=== PATIENT | male | born 1945 | race Caucasian/White ===

== ENCOUNTER 2022-07-25 06:08 | Observation (INO) ==
--- NOTE | 2022-06-16 09:29 | PAT Medication Instructions ---
Medication Instructions Date of Service June 16, 2022 Home Medications coenzyme Q10 100 mg capsule (Co Q-10) 100 mg PO PM wrgcezpvvti-dkihjjcdi-haj C-Mn 500 mg-400 mg capsule 1 cap PO PM lovastatin 20 mg tablet,extended release 24 hr 20 mg PO PM metformin 500 mg tablet 500 mg PO BID multivitamin 1 tab PO PM valsartan 160 mg-hydrochlorothiazide 12.5 mg tablet 1 tab PO QAM STOP taking 2 weeks before surgery coenzyme Q10 100 mg capsule (Co Q-10) 100 mg PO PM xjskzlblcze-wxopglmwj-qnp C-Mn 500 mg-400 mg capsule 1 cap PO PM DO NOT take the morning of surgery metformin 500 mg tablet 500 mg PO BID valsartan 160 mg-hydrochlorothiazide 12.5 mg tablet 1 tab PO QAM Take evening before surgery lovastatin 20 mg tablet,extended release 24 hr 20 mg PO PM metformin 500 mg tablet 500 mg PO BID multivitamin 1 tab PO PM Other Notes NOTHING TO EAT OR DRINK AFTER MIDNIGHT. If you have any questions please call us at [phone] or [phone] or [phone] or [phone]
--- NOTE | 2022-06-29 11:07 | Anesthesiology Consultation ---
Date of Service June 29, 2022 Assessment & Plan (1) Encounter for pre-operative examination: - COVID screening: Per assessment on 06/29: No known COVID-19 positive contacts or current COVID-19 related symptoms. Travel screen negative. Patient vaccinated. At surgeon discretion if preop Covid testing being done. - Check BSG AM DOS - Outpatient joint assessment: Pt currently scheduled for inpatient pathway. If surgeon requests review for outpatient joint pathway, patient is acceptable candidate for outpatient joint program from anesthesia standpoint pending surgeon's office assessment of pt motivation/support/completion of same day joint program preop requirements. Surgeon's office would be responsible to ensure patient has strong post-op home support. Chart Review Chart Review: Acceptable Risk for Surgery and Patient seen in Pre Admission Testing Teaching & Discussion Pre-Anesthesia Teaching/Discussion Notes: Instructed NPO after midnight before surgery,except medications with 15 cc of water. Medication instructions provided according to the PAT guidelines. History Surgery Operation Date: 07/25/22 08:50 Proposed Procedures p Right Total Knee Arthroplasty - Homer Huerta MD Height/Weight Height: 5 ft 9 in Weight: 98.883 kg Allergies Allergy/AdvReac Type Severity Reaction Status Date / Time No Known Allergies Allergy Verified 06/09/22 09:35 Medications Home Medications Medication Instructions Recorded Confirmed Last Taken coenzyme Q10 100 mg capsule (Co 100 mg PO PM 06/09/22 06/09/22 Unknown Q-10) awmosviuskl-ohgjicphb-gzk C-Mn 500 1 cap PO PM 06/09/22 06/09/22 Unknown mg-400 mg capsule lovastatin 20 mg tablet,extended 20 mg PO PM 06/09/22 06/09/22 Unknown release 24 hr metformin 500 mg tablet 500 mg PO BID 06/09/22 06/09/22 Unknown multivitamin 1 tab PO PM 06/09/22 06/09/22 Unknown valsartan 160 1 tab PO DAILY 06/09/22 06/29/22 Unknown mg-hydrochlorothiazide 12.5 mg tablet Past Medical History Medical History Diabetes mellitus, type 2 NIDDM Hyperlipidemia Hypertension Kidney stones Obesity Right knee DJD Exercise / Class Metabolic Activity II 4-5 Yardwork/Stairs/Walk up hill (one FS (no CP, no SOB)) Past Family History Family History Family/Other No problems noted. Father Diabetes mellitus, type 2 Past Surgical History Surgical History History of carpal tunnel release bilat History of colonoscopy History of kidney surgery right kidney (15+ years ago), non-cancerous History of lithotripsy History of tonsillectomy History of tooth extraction History of urinary tract surgery Hx of elbow surgery right Hx of vasectomy Past Anesthesia History No Hx of Anesthesia Complications and No Family Hx of Anesthesia Complications History of PONV No Hx of PONV and No Hx of Motion Sickness Social History Smoking Status: Former smoker Do You Dip or Chew Tobacco: No Smoking End Date: Quit 30 years ago Hx Alcohol Use: Yes Alcohol type: beer alcohol intake frequency: holidays/special occasions only Hx Substance Use: No substance use type: does not use Review of Systems Patient denies chest pain, shortness of breath, dyspnea on exertion, fever, chills, cough, wheezing, palpitations. Physical Exam Vital Signs VITALS BP 129/74 P 73 TEMP 98.4 SP02 97%RA RESP 18 PHYSICAL Full cervical extension range of motion. Full TMJ range of motion. TMD 3 finger breaths Mallampati Score 3 Dentition: missing sides, + several crowns Lungs: clear throughout to auscultation Cardiac: regular rate and rhythm, no murmurs noted Spine: normal Carotid arteries: negative bruit Extremities: no edema Lab Results Anesthesia Preop Results Results Anesthesia Widget: WBC 5.50 K/ul (4.8-10.8) 06/29/22 Hgb 13.1 g/dl (14.0-18.0) L 06/29/22 Hct 37.9 % (40.1-51.0) L 06/29/22 Plt 169 K/uL (130-400) 06/29/22 Na 137 mmol/L (136-145) 06/29/22 K 4.6 mmol/L (3.5-5.1) 06/29/22 Cl 103 mmol/L (98-107) 06/29/22 CO2 29 mmol/L (21-32) 06/29/22 BUN 19 mg/dl (6-23) 06/29/22 Creat 1.16 mg/dl (0.6-1.4) 06/29/22 Glucose Level 117 mg/dl (70-99(Fasting)) H 06/29/22 PT 11.2 Seconds (9.0-12.0) 06/29/22 PTT 26.2 Seconds (21.0-31.0) 06/29/22 INR 1.1 (0.9-1.1) 06/29/22 HA1c 7.5 % (4.5-5.6) H 06/29/22 Blood Type A Positive 06/29/22 Antibody Screen NEGATIVE 06/29/22 Testing Electrocardiogram Date: 06/29/22 NSR at 72bpm. Normal ECG. Chest X-Ray Date: 06/29/22 FINDINGS: Lung volumes are normal. Lungs are clear. There is no pneumothorax or pleural effusion. Cardiac size is normal. Mediastinal contours are normal. There is no evidence for pulmonary edema. Multiple old right rib fractures are incidentally noted. IMPRESSION: No acute cardiopulmonary findings. COVID-19 Risk Screen Screening Information COVID-19 Screen Date: 06/29/22 Exposure 21 Days Family/Household +COVID Last 21 Days: No Exposure 10 Days Any COVID Exposure Last 10 Days: No Symptoms Last 10 Days Experienced COVID Sx Last 10 Days: No + COVID 0-90 Days COVID + in Last 0-90 Days: No
--- NOTE | 2022-07-22 10:24 | History and Physical Report ---
DATE OF ADMISSION: 07/25/2022. CHIEF COMPLAINT: Bilateral knee pain and discomfort, right side greater than left. HISTORY OF PRESENT ILLNESS: The patient is a 77-year-old gentleman who presents now for surgical juan atment of his right knee. He has got a long history of knee pain and discomfort that has gradually g jomar worse over time. The right knee has always been a bit worse than the left. He has been throug h extensive conservative treatment including cortisone shots, which helped initially, but have become less successful recently. He had a gel shot that worked for a while as well, but the last one did n ot work well at all. He has got global pain in both knees. The right side is worse than the left. The more he is up and on it, the more it hurts. He limps more as the day goes on. He would not like to proceed with surgical treatment. PAST MEDICAL HISTORY: Significant for: 1. Diabetes x8 years with an A1c of 7.5. 2. Elevated cholesterol. 3. Hypertension. 4. Mild obesity. 5. Kidney stones. 6. BPH. PAST SURGICAL HISTORY: Includes: 1. Nephrectomy. 2. Right arm surgery for fracture. 3. Pneumothorax/rib fracture. ALLERGIES: None. CURRENT MEDICATIONS: 1. Metformin. 2. Valsartan/hydrochlorothiazide. 3. Rosuvastatin. SOCIAL HISTORY: A 77-year-old male. He is . His is a joint replacement patient of mine . One drinks per week. Does not smoke. FAMILY HISTORY: Significant for bone cancer. REVIEW OF SYSTEMS: Significant for diabetes and he says it is pretty well controlled. No chest pain or shortness of breath. No history of DVT or PE. No known bleeding problems. PHYSICAL EXAMINATION: GENERAL: Shows a pleasant elderly male. He looks to be in pretty good health. HEENT: Benign. NECK: Supple. No lymphadenopathy. LUNGS: Clear to auscultation. HEART: Has a regular rate and rhythm. ABDOMEN: Soft, nontender, nondistended. EXTREMITIES: Grossly neurovascularly intact except as follows. Examination of his knees revealed patient ambulates independently. Examination of the right knee rev eals varus alignment to his knee. He has got bony hypertrophy. He has about a 5-degree flexion cont racture and bends to about 120. No instability. No pain with hip motion. X-RAYS: X-rays of both knees reveal advanced bilateral knee joint disease, right side a bit worse th an left. He has got complete loss of his medial joint space. The right side is worse than the left. He has got osteophytes medially. ASSESSMENT: A 77-year-old male with advanced bilateral knee degenerative joint disease, right side m ore symptomatic than the left. He has failed conservative measures and would like to proceed with ri ght knee replacement. PLAN: We will take him to the operating room and do right total knee replacement. Risks and benefit s of this procedure were explained to the patient and include but not limited to DVT, PE, , infe ction, neurological injury, vascular injury, bleeding problem, pain, limited range of motion, stiffne ss, failure to relieve the symptoms, incomplete relief of symptoms, etc. The patient understands and desires to proceed. Informed consent was obtained. He is diabetic and we will have to use Insulin sliding scale coverage in the hospital. He has only a single kidney, so we will have to be careful with NSAIDs. We used them for a brief period of time. He is planning to be discharged to home with home health and his 's assistance. He will hold hi s metformin and the hydrochlorothiazide the morning of surgery. Job ID: [id number]
[~2022-07-25 06:08] MED LIST: ACETAMINOPHEN 500 MG TAB PO SCH; BUPIVACAINE LIPOSOME/PF 266 MG, BUPIVACAINE/EPINEPHRINE 50 ML, SODIUM CHLORIDE 0.9% 30 ... INFIL SCH; CeleBREX 200 MG CAP PO SCH; FAMOTIDINE 20 MG TAB PO SCH; LR 15ML/HR IV SCH; LR 500ML BOLUS, THEN 15ML/HR IV SCH; METOCLOPRAMIDE HCL 10 MG TABLET PO SCH; TRANEXAMIC ACID 1,000 MG **IV Intra-op IV SCH; ceFAZolin 2000MG 2,000 MG/15 ML SYR IV SCH
[2022-07-25] MEDS ORDERED: ROPIVACAINE 0.5% 5 MG/ML 30 ML VIAL ONE (06:29)
[2022-07-25] MEDS ORDERED: BUPIVACAINE 0.5 % 5 MG/1 ML PF 10ML VIAL ONE (06:29)
--- NOTE | 2022-07-25 06:58 | History & Physical Bridge Note ---
Date of Service July 25, 2022 History & Physical Bridge Note I have examined the patient, reviewed the History & Physical and in the interval since the performance of the History & Physical I have noted the following changes of clinical significance: no changes noted
[2022-07-25] MEDS ORDERED: PROPOFOL IV EMULSION 10 MG/ML 20 ML VIAL IV ONE (07:23)
[2022-07-25] MEDS ORDERED: MIDAZOLAM HCL 1 MG/ML 2ML VIAL ONE ×2 (07:24)
[2022-07-25] MEDS ORDERED: fentaNYL citrate 100 MCG/2 ML VIAL IV PRN (07:31)
[2022-07-25] MEDS ORDERED: ePHEDrine sulfate 50 MG/ML AMP IV PRN (07:31)
[2022-07-25] MEDS ORDERED: ONDANSETRON INJ 2 MG/ML 2 ML VIAL IV PRN ×2 (07:31→11:48)
[2022-07-25] MEDS ORDERED: ATROPINE SULFATE 0.1 MG/ML 10ML SYR IV PRN (07:31)
[2022-07-25] MEDS ORDERED: BUPIVACAINE LIPOSOME 1.3% 266 MG/20 ML VIAL ONE (08:49)
[2022-07-25] MEDS ORDERED: SODIUM CHLORIDE 0.9% PF 50 ML VIAL ONE (08:49)
[2022-07-25] MEDS ORDERED: BUPIVACAINE/EPINEPHRINE 0.25% 1:200,000 30 ML VIAL ONE (08:49)
--- NOTE | 2022-07-25 11:04 | Operative Report ---
PG Post Operative Report Pre & Post Diagnosis Operation Date: 07/25/22 08:50 Pre-Op Diagnosis: Right Knee Advanced Degenerative Joint Disease Post-Op Diagnosis: Right Knee Advanced Degenerative Joint Disease I identified the patient and participated in the time-out.: Yes Procedure Operation Date: 07/25/22 08:50 Actual Procedures p Right Total Knee Arthroplasty(Right) - Homer Huerta MD Surgeon Homer Huerta MD Milk Driver Jean Perrin PA-C Estimated Blood Loss 50 Findings Consistent with Post-Op Diagnosis Operative findings were advanced right knee DJD. Extensive grade 4 qoww-tj-qmjs disease and eburnation medial compartment with a fixed varus deformity to his knee. He had some spotty grade 4 changes elsewhere. He had osteophytes primarily in the medial compartment. Moderate-sized joint effusion. Fluids 1000 cc Specimens Right knee sent for pathology Drains None Anesthesia Type Spinal MAC Complications none Disposition Accompanied Patient To Recovery: No Indications Patient is 77-year-old gentleman is had a several year history of increasing right knee pain discomfort. Is been through extensive conservative treatment which became less successful over time. X-rays show advanced knee arthritis. He elected proceed with total knee arthroplasty. Description of Procedure Operative implants consist of: 1 Biomet Vanguard size 70 right posterior stabilized femoral component. 2. Biomet size 79 tibial tray. 3. 12 mm posterior stabilized polyethylene insert. 4. 34 x 8 and half all Paller patella. The patient was taken the operating, identified, placed on the operating table supine position protectors were properly padded. IV antibiotics tried by anesthesia team. Spinal anesthetic and abductor canal block had provided in the holding area. Mercado catheter was placed in sterile fashion. Right thigh high tourniquet was then placed in the right lower extremities and prepped and draped in usual sterile fashion. The right leg was elevated exsanguinated with use of an Esmarch in terms playset 3 mmHg. An anterior pressure of the right leg was then performed to longitudinal incision centered over the patella. Sharp dissection was carried through subcutaneous this down the extensor mechanism. A medial parapatellar arthrotomy incision was made. Some subperiosteal dissection was carried out medially. The fat pad was resected from Neath patella tendon. Lateral patellofemoral ligament was released. Patella subluxated laterally and the knee was flexed. The osteophytes taken off distal femur. The ACL and PCL were then released from distal femur the tibia subluxated anteriorly. The external tibial alignment jig was then placed the interface the tibia and adjusted 14 mm medially. Proximal tibial cut was made remove about a millimeter bone from the most deficient aspect the posterior medial tibial plateau. Some osteophytes taken off medial and posterior medially. Tibia sized to a size 79. Attention drawn the femur. The distal femur during the sharp drill. Intramedullary canal was suction. A right 6 degree valgus cutting guide was placed. The distal femoral cutting block was pinned in place. Distal femoral cut was made to take an additional 3 mm bone off distal femur. The femur was then sized to a size 70. Sized almost exactly to a 70. The AP cutting block was pinned parallel to the epicondylar axis which was 4 degrees of external rotation. The anterior cut, anterior chamfer, posterior cut, posterior chamfer cuts were made. The box cutting guide was placed in a just slightly lateral and the box cut was made. The knee was flexed. The remnants of the medial and lateral menisci were excised. The osteophytes taken off the posterior aspect the femur. A trial femoral component was placed. The tibial tray was pinned in maximum external rotation and the drill and stem punch were used to create defect in proximal tibia for the tibial tray. The knee was then trialed and the 12 mm insert fit most appropriately. Attention drawn the patella. The patella was cleaned of all soft tissues. Patella thickness measured 22 mm in thickness. Was cut down to 15. Was sized to a size 34 patella. The lug holes were drilled for the 34 patella. The lateral osteophytes removed. The patella button was placed. Knee was taken through range of motion patella tracked nicely with no thumbs test. Attention drawn to place the permanent components. Nupathe all trial components were removed. Bone plug was placed in the distal femur limit blood loss. Double batch Palacos G cement was mixed. Biomet Vanguard size 70 right posterior stabilized femoral component, size 79 tibial tray, a 12 mm posterior stabilized polyethylene insert, and a 34 x 8 and half all Paller patella were then cemented in place. Knee was brought out into full extension until cement hardened. Final cement check was then performed. The pericapsular tissues were injected with total 100 cc of combination of 20 cc of Exparel, 30 cc normal saline, 50 cc of quarter percent Marcaine with epinephrine. Patient did receive 1 g tranexamic acid. The tourniquet was let down for final tourniquet time of 59 minutes. Hemostasis assured with electrocautery. Wounds once again irrigated. The extensor mechanism closed wi th combination 1 PDS suture #1 Vicryl suture in [id number] fashion. Extensor mechanism checked found to be intact the subcutaneous tissue then closed with 2 Dexon suture in a buried interrupted fashion. The skin was closed with skin heike. Leg was then cleaned and dried a sterile dressing was Xeroform, 4 x 4's, sterile ABD pad, sterile cast padding, Garrison bandage were applied. Patient then transferred to the recovery room in stable condition. Patient tolerated procedure well and there were no complications. Jean Perrin, my physician triage assistant, was present for the entire procedure. His assistance was essential and required for appropriate patient positioning, prepping and draping, surgical exposure, performing the technical details of the operation, placement the implants, closure of the wound, and placement of the sterile bandage. I attest to the content of the Intraoperative Record and any orders documented therein. Any exceptions are noted below.
--- NOTE | 2022-07-25 11:35 | XRay Report ---
XR knee RT 1 or 2V routine HISTORY: 77 years-old Male Surgical Post Op right knee total joint arthroplasty COMPARISON: 10/28/2021 TECHNIQUE: 2 views of the right knee FINDINGS: Total joint arthroplasty with patellar resurfacing. Anterior midline skin heike are noted along wit h expected postoperative soft tissue swelling with deep tissue air. There is no acute fracture or une xpected opaque foreign body. IMPRESSION: Total joint arthroplasty with expected postoperative changes. ACT 112: Negative or not required by law. The above report was generated using voice recognition software. It may contain grammatical, syntax o r spelling errors. Electronically signed by: Asaf Lake M.D. 07/25/2022 11:34 AM
--- NOTE | 2022-07-25 11:44 | Anesthesiology Progress Note ---
Date of Service July 25, 2022 Anesthesia Post Procedure Vital Signs Vital Signs: Temp Pulse Pulse Resp BP Pulse Ox O2 Del Method 07/25/22 11:15 71 14 127/64 99 Oxymask 07/25/22 11:35 67 14 131/69 98 Room Air 07/25/22 11:25 67 14 125/70 100 Oxymask 07/25/22 11:05 72 14 111/61 100 Oxymask 07/25/22 10:57 36.1 C L 78 14 122/58 L 96 Oxymask 07/25/22 06:24 36.5 C 96 H 20 140/89 97 Room Air O2 Flow Rate 07/25/22 11:15 3 07/25/22 11:35 07/25/22 11:25 3 07/25/22 11:05 5 07/25/22 10:57 5 07/25/22 06:24 Transfer of Care Handoff Completed per policy Notes Mental Status: alert / awake / arousable and participated in evaluation Patient Amnestic to Procedure: Yes Nausea / Vomiting: adequately controlled Pain: adequately controlled Airway Patency, RR, SpO2: stable & adequate BP & HR: stable & adequate Hydration State: stable & adequate Anesthetic Complications: no major complications apparent and Pt Satisfied with anesthetic care
[2022-07-25] MEDS ORDERED: NALOXONE HCL 0.4 MG/1 ML VIAL/CARP IV PRN (11:48)
[2022-07-25] MEDS ORDERED: oxyCODONE HCL IR 5 MG TAB (IMMEDIATE RELEASE) PO PRN (11:48)
[2022-07-25] MEDS ORDERED: CARBOHYDRATES FOR HYPOGLYCEMIA PO PRN (11:48)
[2022-07-25] MEDS ORDERED: DEXTROSE 50% 50 ML SYRINGE IV PRN (11:48)
[2022-07-25] MEDS ORDERED: bisacodyL 10 MG SUPP PR PRN (11:48)
[2022-07-25] MEDS ORDERED: METOCLOPRAMIDE HCL INJ 5 MG/ML 2 ML VIAL IV PRN (11:48)
[2022-07-25] MEDS ORDERED: HYDROmorphone INJ 0.5 MG/0.5 ML SYR IV PRN (11:48)
[2022-07-25] MEDS ORDERED: GLUCAGON FOR INJ 1 MG VIAL SQ PRN (11:48)
[2022-07-25] MEDS ORDERED: ALUMINUM/MAGNESIUM SUSP 30 ML UDC PO PRN (11:48)
[2022-07-25] MEDS ORDERED: GLUCOSE 10 TAB/TUBE PO PRN (11:48)
[2022-07-25] MEDS ORDERED: GLUCOSE 40% GEL 15 GM TUBE PO PRN (11:48)
[2022-07-25] MEDS ORDERED: PHARMACY GLYCEMIC MGMT CONSULT PRN (11:48)
[2022-07-25] MEDS ORDERED: MAGNESIUM HYDROXIDE SUSP 30 ML UDC PO PRN (11:48)
[2022-07-25] MEDS ORDERED: NovoLIN-R INSULIN PER UNIT CHARGE ONE (13:53)
[2022-07-25] MEDS ORDERED: INFLUENZA VACCINE HIGH DOSE PF 65+ 0.7 ML SYR IM ONE (14:36)
--- NOTE | 2022-07-25 14:48 | Pharmacy Report ---
Pharmacy Glycemic Short Note 2 - Date of Service July 25, 2022 - Glycemic Short BSG Results (Last 24 hours): 07/25/22 07/25/22 07/25/22 06:30 11:00 13:38 POC Glucose 128 H 124 H 177 H OUTPATIENT ANTIDIABETIC REGIMEN: * metformin 500 mg PO BID * HbA1C = 7.5% (06/29/22) ASSESSMENT: * Mr Hillman is a 77 y/o M who presents for R knee surgery. He received no steroids during surgery. * BSG on admission for surgery was 128 mg/dL. BSG after surgery was 124 mg/dL. * Patient did eat lunch and BSG after lunch was 177 mg/dL. Instructed nurse to give insulin for carbohydrates only. Patient given regular insulin. * Will order some Lantus for dinner. Patient's HbA1C indicates he will need some basal insulin especially after diet resumed. * Overnight checks to ensure patient does not have hyperglycemia. * Hold metformin and resume POD 1 or 2 depending on kidney function. PLAN FOR INPATIENT GLYCEMIC CONTROL: * Hold outpatient oral diabetes medications- resume 07/26 or 07/27. * Basal insulin * Lantus 10 units SQ with dinner (15 units if BSG > 150 mg/dL) * Bolus insulin * NovoLog per scale ACHS or Q6hrs while NPO * Goal Range: Low 110 mg/dL - High 140 mg/dL * Correction Factor: 25 mg/dL/unit * Nutritional / Prandial insulin per carb ratio of 1 unit per 7 grams CHO consumed
[2022-07-25] MEDS: KETOROLAC TROMETHAMINE 15 MG/ML VIAL IV SCH ×3 (14:55→23:42)
[2022-07-25] MEDS: INSULIN ASPART PER UNIT SC SCH ×3 (14:55→21:31)
--- NOTE | 2022-07-25 14:57 | Pharmacy Report ---
Pharmacy Glycemic Short Note 2 - Date of Service July 25, 2022 - Glycemic Short BSG Results (Last 24 hours): 07/25/22 07/25/22 07/25/22 06:30 11:00 13:38 POC Glucose 128 H 124 H 177 H OUTPATIENT ANTIDIABETIC REGIMEN: * ASSESSMENT: * PLAN FOR INPATIENT GLYCEMIC CONTROL: * Hold outpatient oral diabetes medications * Basal insulin * Lantus [] units SQ BID * Bolus insulin * NovoLog per scale ACHS or Q6hrs while NPO * Goal Range: Low [] mg/dL - High [] mg/dL * Correction Factor: [] mg/dL/unit * Nutritional / Prandial insulin per carb ratio of 1 unit per [] grams CHO consumed
[2022-07-25] MEDS: SODIUM CHLORIDE 0.9% 1000ML 1,000 ML IV SCH ×2 (15:16→23:06)
[2022-07-25] MEDS: ACETAMINOPHEN 500 MG TAB PO SCH ×2 (15:17→22:17)
[2022-07-25] MEDS ORDERED: LANTUS PER UNIT CHARGE SQ SCH (16:30)
[2022-07-25] MEDS ORDERED: TRANEXAMIC ACID / 0.7% NACL 1,000 MG/100 ML BAG IV SCH (17:00)
[2022-07-25] MEDS: ceFAZolin 2000MG 2,000 MG/15 ML SYR IV SCH (17:08)
[2022-07-25] MEDS: ASCORBIC ACID 500 MG TAB PO SCH (17:59)
[2022-07-25] MEDS ORDERED: SENNA 8.6 MG TAB PO SCH (21:00)
[2022-07-25] MEDS ORDERED: NON-FORMULARY MEDICATION (Multivitamin Tablet) PO SCH (21:00)
[2022-07-25] MEDS ORDERED: NON-FORMULARY MEDICATION (Coenzyme Q10 [Co Q-10] 100 mg Capsule) PO SCH (21:00)
[2022-07-25] MEDS ORDERED: DOCUSATE SODIUM 100 MG CAP PO SCH (21:00)
[2022-07-25] MEDS: ASPIRIN 81 MG ECTAB PO SCH (22:16)
[2022-07-25] MEDS: DOCUSATE SODIUM/SENNA 50/8.6MG TAB PO SCH (22:16)
[2022-07-26] MEDS: ceFAZolin 2000MG 2,000 MG/15 ML SYR IV SCH (00:01)
[2022-07-26] MEDS: INSULIN ASPART PER UNIT SC SCH ×4 (00:07→12:23)
[2022-07-26] MEDS: ACETAMINOPHEN 500 MG TAB PO SCH ×2 (05:02→13:55)
[2022-07-26] MEDS: KETOROLAC TROMETHAMINE 15 MG/ML VIAL IV SCH ×2 (05:03→11:44)
[2022-07-26 06:06] LABS: Hemoglobin 10.8 g/dl (14.0-18.0); Mean Corpuscular Hemoglobin 32.7 pg (25.0-34.0); Mean Corpuscular Hgb Conc 34.8 g/dL (32.0-36.0); Mean Corpuscular Volume 93.9 fL (80.0-100.0); Platelet Count 135 K/uL (130-400); RDW Coefficient of Variation 13.1 % (11.5-14.5); RDW Standard Deviation 45.1 fL (36.4-46.3); White Blood Count 5.84 K/ul (4.8-10.8)
[2022-07-26 06:35] LABS: BUN Creatinine Ratio 15.6 (10-20); Calcium 8.2 mg/dl (8.5-10.1); Creatinine Clr Calc Pharmacy 46.4 ml/min; Est GFR (African American) 49.4 ml/min; Est GFR (Non-African American) 42.6 ml/min; Potassium 3.8 mmol/L (3.5-5.1)
[2022-07-26] MEDS: ASPIRIN 81 MG ECTAB PO SCH (08:14)
[2022-07-26] MEDS ORDERED: hydroCHLOROthiazide 25 MG TAB PO SCH (09:00)
[2022-07-26] MEDS: ASCORBIC ACID 500 MG TAB PO SCH (09:00)
[2022-07-26] MEDS ORDERED: MULTIVITAMIN TAB PO SCH (09:00)
[2022-07-26] MEDS ORDERED: VALSARTAN 80 MG TAB PO SCH (09:00)
[2022-07-26] MEDS ORDERED: TAMSULOSIN HCL 0.4 MG CAP PO SCH (09:00)
[2022-07-26] MEDS: DOCUSATE SODIUM/SENNA 50/8.6MG TAB PO SCH (09:01)
--- NOTE | 2022-07-26 12:01 | Pharmacy Report ---
Pharmacy Glycemic Short Note 2 - Date of Service July 26, 2022 - Glycemic Short BSG Results (Last 24 hours): 07/25/22 07/25/22 07/25/22 13:38 17:04 20:50 Glucose POC Glucose 177 H 140 H 108 H 07/25/22 07/26/22 07/26/22 23:44 05:00 05:23 Glucose 132 H POC Glucose 135 H 121 H 07/26/22 07/26/22 08:00 11:46 Glucose POC Glucose 135 H 94 OUTPATIENT ANTIDIABETIC REGIMEN: * metformin 500 mg PO BID HbA1C = 7.5% (06/29/22) ASSESSMENT: 07/26/22: * BSGs well-controlled postoperatively, ranging 108-140 mg/dL * Received 18 units of insulin (10 units of basal and 8 units of bolus) * SCr elevated today at 1.54 mg/dL (1.16 mg/dL on 06/29/22) - will hold off on restarting metformin * Will loosen insulin dosing today 07/25/22: * Mr Hillman is a 77 y/o M who presents for R knee surgery. He received no steroids during surgery. * BSG on admission for surgery was 128 mg/dL. BSG after surgery was 124 mg/dL. * Patient did eat lunch and BSG after lunch was 177 mg/dL. Instructed nurse to give insulin for carbohydrates only. Patient given regular insulin. * Will order some Lantus for dinner. Patient's HbA1C indicates he will need some basal insulin especially after diet resumed. * Overnight checks to ensure patient does not have hyperglycemia. * Hold metformin and resume POD 1 or 2 depending on kidney function. PLAN FOR INPATIENT GLYCEMIC CONTROL: * Hold outpatient oral diabetes medications * Basal insulin * Lantus 5-10 units SC HS (see EHR for details) * Bolus insulin * NovoLog per scale ACHS or Q6hrs while NPO * Goal Range: Low 110 mg/dL - High 140 mg/dL * Correction Factor: 30 mg/dL/unit * Nutritional / Prandial insulin per carb ratio of 1 unit per 10 grams CHO consumed
--- NOTE | 2022-07-26 13:59 | Progress Notes ---
SUBJECTIVE: A 77-year-old gentleman postoperative day 1 from right knee replacement. He is doing pr aguila well. Therapy went well this morning. Pain is controlled. No chest pain or shortness of breat h. Not feeling dizzy or lightheaded. OBJECTIVE: VITAL SIGNS: Temperature 36.9. Vital signs are stable. GENERAL: Physical examination shows a pleasant, elderly male. He is sitting up in bed and looks anderson te comfortable. LUNGS: Clear to auscultation. HEART: Has a regular rate and rhythm. ABDOMEN: Soft, nontender, nondistended. EXTREMITIES: Grossly neurovascularly intact except as follows. Examination of the right knee reveal s the leg to be well aligned. Dressing is clean, dry, and intact. No significant drainage. He stru ggles doing a straight leg raise. He can dorsiflex and plantarflex his foot appropriately. He is ne urologically intact. LABORATORY DATA: Hemoglobin 10.8. Hematocrit 31.0. Electrolytes are fairly stable. Creatinine jus t slightly elevated. ASSESSMENT: A 77-year-old gentleman postoperative day 1 from a right knee replacement, doing pretty well. Pain is controlled. He is neurologically intact. Creatinine is slightly elevated and we will encourage hydration and limit NSAIDs. PLAN: 1. DVT prophylaxis includes thigh-high TEDs, SCDs, and aspirin twice a day. 2. PT/OT, weightbear as tolerated. Left total knee protocol. 3. Pain control, doing okay with current pain regimen. 4. Elevated creatinine. We are going to encourage p.o. intake. We are going to discontinue NSAIDs, except for the baby aspirin. 5. Disposition: Plan to discharge to home with some home health later today. Job ID: [id number]
[2022-07-26] MEDS ORDERED: LANTUS PER UNIT CHARGE SQ SCH (21:00)
== END 2022-07-26 14:28 | disposition home health service (06) ==
LOC: ASU 06:08 → PACUINP 06:08 → 3E 14:15